=== PATIENT | male | born 1995 | race Caucasian/White ===

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

== ENCOUNTER 2017-12-29 09:21 | Emergency (ER) | payer OTHER ==
[~2017-12-29] VITALS: Ht 175.3 cm; Wt 63.6 kg
[2017-12-29] MEDS ORDERED: LIDOCAINE HCL 1% 20 ML VIAL INJ ONE (10:30)
[2017-12-29] MEDS ORDERED: OxyCODONE HCL/ACETAMINOPHEN 5-325 MG TABLET PO ONE (10:30)
[2017-12-29] MEDS ORDERED: POVIDONE-IODINE 10% 15 ML SOLUTION UD TP ONE (10:30)
[2017-12-29 13:12] VITALS: BP 121/62
== END 2017-12-29 14:04 | disposition home or self-care (01) ==
LOC: EMS 09:22
DX: S90.211A Contusion of right great toe with damage to nail, initial encounter (principal); S90.212A Contusion of left great toe with damage to nail, initial encounter; L60.0 Ingrowing nail; W20.8XXA Other cause of strike by thrown, projected or falling object, initial encounter; Y93.89 Activity, other specified; Y92.89 Other specified places as the place of occurrence of the external cause; Y99.8 Other external cause status
CPT/HCPCS: 11730; 11732; 73660 ×2; 99284; J3490